=== PATIENT | male | born 1935 | race Caucasian/White ===

== ENCOUNTER → 2016-06-25 13:01 | Outpatient (CLI) | payer MEDICARE, BC ==
[2016-07-09 14:19] LABS: CRYPTOCOCCUS AG - SERUM Negative (Negative)
[2016-08-21 07:27] LABS: HISTOPLASMA GAL MANNAN AG SER 0.64 ng/mL (0.00-0.49)
== END | disposition home or self-care (01) ==
LOC: D.LABREF 13:01
PROVIDERS: Student in an Organized Health Care Education/Training Program
DX: J16.8 Pneumonia due to other specified infectious organisms (principal)

== ENCOUNTER → 2016-07-23 16:06 | Outpatient (CLI) | payer MEDICARE, BC ==
[2016-07-23 20:44] LABS: BASOPHILS 0.3 % (0.0-2.0); EOSINOPHILS 2.7 % (0-7); HEMATOCRIT 38.3 % (42.0-54.0); HEMOGLOBIN 12.6 g/dL (13.5-17.5); IMMATURE GRANULOCYTES 0.3 % (0-5); MCHC 32.9 g/dL (31.0-37.0); MCV 91.2 fL (80.0-100.0); MEAN PLATELET VOLUME 9.6 fL (7.4-10.4); MONOCYTES 10.4 % (2-11); NEUTROPHILS 65.3 % (40-80); PLATELET COUNT 255 10x3/uL (130-400); RDW 14.9 % (11.5-14.5); WBC 9.8 10x3/uL (4.8-10.8)
[2016-07-23 21:13] LABS: ALBUMIN 3.5 g/dL (3.4-5.0); ANION GAP 13.1 mmol/L (8-16); BILIRUBIN - TOTAL 0.31 mg/dL (0.2-1.3); CARBON DIOXIDE 29.5 mmol/L (21.0-32.0); CREATININE - SERUM 1.3 mg/dL (0.6-1.3); POTASSIUM - SERUM 4.6 mmol/L (3.5-5.1)
== END | disposition home or self-care (01) ==
LOC: D.LABREF 16:06
PROVIDERS: Student in an Organized Health Care Education/Training Program
DX: B39.9 Histoplasmosis, unspecified (principal)